=== PATIENT | female | born 1990 | race Caucasian/White ===

== ENCOUNTER 2020-07-01 16:46 | Emergency (ER) | payer MEDICAID ==
[~2020-07-01] VITALS: Ht 162.6 cm; Wt 96.4 kg
[2020-07-01 16:50] VITALS: BP 123/69
[2020-07-01] MEDS ORDERED: IBUP-1506 PO (16:57)
[2020-07-01] MEDS ORDERED: ACET-2247 PO (16:57)
[2020-07-01] MEDS ORDERED: AMOX TR/POT CLAV 875 MG/125 MG TABLET PO ONE (17:45)
== END 2020-07-01 17:58 | disposition home or self-care (01) ==
LOC: EMS 16:51
DX: K04.7 Periapical abscess without sinus (principal); J45.909 Unspecified asthma, uncomplicated; F17.210 Nicotine dependence, cigarettes, uncomplicated; F12.90 Cannabis use, unspecified, uncomplicated
CPT/HCPCS: 99283

== ENCOUNTER 2023-08-21 15:56 | Emergency (ER) | payer MEDICAID, OTHER ==
[~2023-08-21] VITALS: Ht 162.6 cm; Wt 90.9 kg
[~2023-08-21 15:56] MED LIST: ACET-2247 PO; IBUP-1506 PO
[2023-08-21] MEDS: IBUPROFEN 600 MG TABLET PO ONE (19:17)
[2023-08-21] MEDS: BACITRACIN 0.9 GM PACKET OINTMENT TP ONE (19:17)
[2023-08-21] MEDS: HYDROmorphone HCL 2 MG/ML SYRINGE IM ONE (19:18)
[2023-08-21] MEDS: ONDANSETRON HCL 4 MG/2 ML VIAL IM ONE (19:18)
[2023-08-21] MEDS ORDERED: IBUP-1554 PO (19:51)
[2023-08-21] MEDS ORDERED: HYDR-4062 PO (19:51)
[2023-08-21 20:20] VITALS: BP 124/77; PULSE 75; RESP 18; TEMP 97.3
== END 2023-08-21 20:29 | disposition home or self-care (01) ==
LOC: EMS 15:56
DX: S60.022A Contusion of left index finger without damage to nail, initial encounter (principal); S60.032A Contusion of left middle finger without damage to nail, initial encounter; S60.042A Contusion of left ring finger without damage to nail, initial encounter; J45.909 Unspecified asthma, uncomplicated; F17.210 Nicotine dependence, cigarettes, uncomplicated; F12.90 Cannabis use, unspecified, uncomplicated; Z88.5 Allergy status to narcotic agent; W22.8XXA Striking against or struck by other objects, initial encounter; Y93.89 Activity, other specified; Y92.89 Other specified places as the place of occurrence of the external cause; Y99.0 Civilian activity done for income or pay
CPT/HCPCS: 99284; 73130; 96372; J1170; J2405; 29240; 29280